=== PATIENT | female | born 1960 | race Caucasian/White ===

== ENCOUNTER → 2023-09-19 | Outpatient (CLI) | payer BC ==
--- NOTE | 2023-09-19 10:36 | MM ---
Reason for Exam: Clinical finding. Last screening mammogram was performed 11 month(s) ago. Patient History: Menarche at age 14. First Full-Term at age 26. Postmenopausal. Bilateral Reduction. Mother had breast cancer. Risk Values: Lori 5 year model risk: 2.8%. NCI Lifetime model risk: 13.2%. Prior Study Comparison: 10/19/2022 Bilateral Screening Mammogram, Unknown. Tissue Density: Right: There are scattered fibroglandular densities. Findings: Analyzed By CAD. No finding to correlate with palpable abnormality. No new suspicious masses, calcifications or distortions. Overall Assessment: Incomplete: need additional imaging evaluation, BI-RAD 0 Management: Diagnostic Breast Ultrasound of the right breast. Results were given to the patient verbally at the time of exam. Patient should continue monthly self-breast exams. A clinical breast exam by your physician is recommended on an annual basis. This exam should not preclude additional follow-up of suspicious palpable abnormalities. Note on Lori scores and lifetime risk: 1. A Lori score greater than 3% is considered moderate risk. If this is the case, consider specialist referral to assess eligibility for a risk reducing agent. 2. If overall lifetime risk for the development of breast cancer is 20% or higher, the patient may qualify for future screening with alternating mammogram and breast MRI. Electronically signed and approved by: Christopher Bynum DO
--- NOTE | 2023-09-19 10:36 | USB ---
Reason for Exam: Clinical finding. Patient History: Menarche at age 14. First Full-Term at age 26. Postmenopausal. Bilateral Reduction. Mother had breast cancer. Risk Values: Lori 5 year model risk: 2.8%. NCI Lifetime model risk: 13.2%. Technique: Method: Targeted. Prior Study Comparison: 10/19/2022 Bilateral Screening Mammogram, Unknown. Findings: The area of palpable concern of the right breast, the axilla of the right breast and the retroareolar of the right breast were scanned. Technique utilized:US breast limited RT Image; Ultrasound imaging of: All 4 quadrants, the retroareolar region and axilla. No evidence for organizing fluid collection or mass. Overall Assessment: Negative, BI-RAD 1 Management: Screening Mammogram of both breasts in 1 year. A clinical breast exam by your physician is recommended on an annual basis and results should be correlated with mammographic findings. This exam should not preclude additional follow-up of suspicious palpable abnormalities. Results were given to the patient verbally at the time of exam. Electronically signed and approved by: Christopher Bynum DO
== END | disposition home or self-care (01) ==
LOC: RADMAMWWP 08-26 09:46
PROVIDERS: ATTEND Family Medicine
DX: N63.10 Unspecified lump in the right breast, unspecified quadrant (principal); R92.321 Mammographic fibroglandular density, right breast; Z78.0 Asymptomatic menopausal state; Z80.3 Family history of malignant neoplasm of breast
CPT/HCPCS: 77061; 77065

== ENCOUNTER → 2023-12-20 | Outpatient (CLI) | payer BC ==
--- NOTE | 2023-12-20 09:23 | US ---
EXAMINATION TYPE: US gallbladder DATE OF EXAM: 12/20/2023 COMPARISON: NONE CLINICAL INDICATION: Female, 63 years old with history of R10.11 RIGHT UPPER QUADRANT PAIN; RUQ pain, diarrhea, vomiting TECHNIQUE: Multiple sonographic images of the right upper quadrant are obtained. FINDINGS: EXAM MEASUREMENTS: Liver Length: 16.0 cm Gallbladder Wall: 0.3 cm CBD: 0.4 cm Right Kidney: 10.5 x 5.1 x 4.9 cm Pancreas: limited evaluation due to overlying bowel gas, duct = 0.3cm Liver: appears wnl Gallbladder: multiple small stones Evidence for sonographic Ruelas's sign: no CBD: appears wnl Right Kidney: no evidence of hydronephrosis IMPRESSION: 1. No evidence for acute process. 2. Cholelithiasis.
== END | disposition home or self-care (01) ==
LOC: RADUSWWP 07:32
PROVIDERS: ATTEND Family Medicine
DX: K80.20 Calculus of gallbladder without cholecystitis without obstruction (principal); R19.7 Diarrhea, unspecified; R11.10 Vomiting, unspecified
CPT/HCPCS: 76705

== ENCOUNTER → 2025-05-12 | Outpatient (CLI) | payer BC ==
--- NOTE | 2025-05-12 07:31 | USB ---
Reason for Exam: Clinical finding. Patient History: Menarche at age 14. First Full-Term at age 26. Postmenopausal. Bilateral Reduction. Mother had breast cancer. Risk Values: Lori 5 year model risk: 2.9%. NCI Lifetime model risk: 12.8%. Technique: Method: Whole Breast Handheld. Prior Study Comparison: 10/19/2022 Bilateral Screening Mammogram, Unknown. 09/19/2023 Right MG 3D diag mammo w/cad RT, [facility]. 01/05/2025 Bilateral MG 3D screening mammo w/cad, [facility]. Findings: The whole breast of the right breast, the axilla of the right breast and the retroareolar of the right breast were scanned. A complete US of all four quadrants of the breast, axilla, and retro-areolar region were reviewed. No solid or cystic masses are identified. Minimal benign duct ectasia behind the nipple. No axillary adenopathy. Overall Assessment: Benign, BI-RAD 2 Management: Screening Mammogram of both breasts in 8 months. Further clinical management of any residual rash. A clinical breast exam by your physician is recommended on an annual basis and results should be correlated with mammographic findings. This exam should not preclude additional follow-up of suspicious palpable abnormalities. Results were given to the patient verbally at the time of exam. [facility], , 05/12/2025 7:29 AM. Electronically signed and approved by: Yesi Ferreira M.D. Radiologist
== END | disposition home or self-care (01) ==
LOC: RADUSWWP 07:01
PROVIDERS: ATTEND Family Medicine
DX: N61.0 Mastitis without abscess (principal); Z78.0 Asymptomatic menopausal state; Z80.3 Family history of malignant neoplasm of breast

== ENCOUNTER → 2025-06-23 | Outpatient (CLI) | payer BC ==
--- NOTE | 2025-06-23 14:39 | US ---
EXAMINATION TYPE: US venous doppler duplex LE LT DATE OF EXAM: 06/23/2025 2:24 PM COMPARISON: NONE CLINICAL INDICATION: Female, 65 years old with history of M79.605 PAIN IN LEFT LEG; Lt leg pain/swell ing x 3 days, discoloration, hx of dvt during sledding accident years ago, currently on baby aspirin TECHNIQUE: The lower extremity deep venous system is examined utilizing real time linear array sonog jay with graded compression, doppler sonography and color-flow sonography. Grayscale, color doppler , spectral doppler imaging performed of the deep veins of the lower extremities FINDINGS: SIDE PERFORMED: Left VESSELS IMAGED: Common Femoral Vein Deep Femoral Vein Greater Saphenous Vein * Femoral Vein Popliteal Vein Small Saphenous Vein * Proximal Calf Veins (* superficial vessels) Left Leg: Negative for DVT; There is normal flow, compressibility, vascular waveforms. Left lateral calf Area of pain scanned: no obvious abnormality seen. IMPRESSION: 1. No evidence for deep vein thrombosis of the left lower extremity. 2. No ultrasound evidence for abnormality in the left lateral calf in the patient's region of concer n. [facility], , 06/23/2025 2:36 PM
== END | disposition home or self-care (01) ==
LOC: RADUSWWP 14:05
PROVIDERS: ATTEND Physician Assistant Medical
DX: M79.605 Pain in left leg (principal); M79.89 Other specified soft tissue disorders